=== PATIENT | female | born 1985 | race Caucasian/White ===

== ENCOUNTER 2017-12-06 12:16 | Inpatient (IN) | payer MEDICAID, SELFPAY ==
[2017-12-06 12:32] VITALS: BMI 22.1
--- NOTE | 2017-12-06 12:33 | PCM.HP.STD ---
Problem List (1) Heroin overdose Status: Acute (2) Recurrent UTI Status: Inactive (3) Anxiety Status: Acute History of Present Illness Date of Admission: 12/06/17 Chief Complaint: Nausea, abdominal cramps,gooseflesh The patient is a 32 year old F with past history of heroin use disorder who is coming in with complaints of feeling hot and cold with nausea and muscle aches. Patient reports using 1/2 to 1 g of Heroin IV daily. Last use of heroin was 12/05/2017 in amounts more than 1/16th of a gram. Patient's admitting CINA was 15. He reports past history of hospitalization 2017 for opioid withdrawal with no complication. She had 5 months of sobriety and then relapsed again. She is looking forward to his family life counseling and intensive outpatient counseling postdischarge. Past Medical History Surgical History: - - uterine surgery/implants Psychiatric History: Anxiety, Depression [employer] History: - - uterine surgery Lives: With Family Smoking Status: Light Smoker (<10/day) - *Family History Maternal History Items: No pertinent history Paternal History Items: No pertinent history Review of Systems Constitutional: Reports: Chills, Weakness. Denies: Anorexia, Fever, Weight Change Eyes: Denies: Blurred vision, Cataracts, Conjunctivae Inflammation, Pain, Redness HEENT: Reports: Nasal Congestion, - - lacrimation. Denies: Difficulty Hearing, Difficulty Swallowing, Head Aches, Hearing Changes, Sinus Drainage, Sore Throat, Visual Changes Cardiovascular: Denies: Chest Pain, Claudication, Chest Pressure, Orthopnea, Palpitations, Paroxysmal Noc. Dyspnea Respiratory: Denies: Cough, Hemoptysis, Pleuritic Pain, Shortness of breath upon exertion, Sputum production Gastrointestinal: Reports: Abdominal Pain, Nausea. Denies: Constipation, Diarrhea, Dyspepsia, Hematemesis, Hematochezia, Vomiting Genitourinary: Denies: Dysuria, Frequency Gynecological: Denies: Breast symptoms, Excessively long or heavy periods Musculoskeletal: Reports: - - muscle aches. Denies: Joint stiffness, Joint swelling Skin: Denies: Rash Neurological: Reports: - - restlessness. Denies: Balance problems, Blurred vision, Double vision, Difficulty swallowing, Focal weakness Psychiatric: Reports: Anxiety. Denies: Depression, Homicidal Ideations, Suicidal Ideations Endocrine: Denies: Change in Body Habitus Hematologic/ Lymphatic: Denies: Adenopathy VTE Information - Inpt Only VTE Present on Admission: No VTE Pharm Prophylaxis ordered?: No Reason prophylaxis not ordered:: Treatment Not Indicated Patient Problems: Active and Suspected Problems Heroin overdose (Acute) Anxiety (Acute) - Physical Exam General: Alert, Oriented x3, Cooperative HEENT: Atraumatic, PERRLA, EOMI, Normocephalic Oral: Moist Mucosa Neck: Supple, No JVD, Negative Carotid Bruits Lungs: Clear to auscultation, Normal air movement Cardiovascular: Regular rate, Regular Rhythm, Normal S1, Normal S2, No murmurs Abdomen: Bowel Sounds Present, Soft, Non Tender, Non-Distended, No Hepato-splenomegaly Extremities: No edema, Capillary Refill Less than 3 Seconds Skin: No rashes Musculoskeletal: No Tenderness to Palpation of Joints or Extremities Lymphatic: No Cervical, Supraclavicular, or Inguinal Adenopathy Neurological: Cranial nerves II-XII grossly intact, Neuro grossly intact, Motor Exam 5/5 strength throughout Psych/Mental Status: Normal Affect, Appropriate Assessment/Plan Active and Suspected Problems Heroin overdose (Acute) Anxiety (Acute) 32-year-old female with past history of heroin use disorder comes in with complaints of nausea, nasal congestion, restlessness, tremors, lacrimation, abdominal discomfort for medical stabilization via the [facility] protocol. 1. Acute heroine withdrawal, admitting CINA is 15, would managed per [facility] protocol with buprenorphine, will monitor vitals closely 2. Nicotine use disorder, will put patient on patch and gum 3. Anxiety/depression, patient is not on any chronic medications, not homicidal or suicidal, will continue to monitor 4. DVT prophylaxis with early ambulation Code Visit Inpatient E&M: 43193 Init Hosp L2
[2017-12-06 12:37] VITALS: BP 110/69; PULSE 97; RESP 16; TEMP 37.1; O2SAT 100
[2017-12-06 12:45] VITALS: BMI 22.2
[2017-12-06] MEDS: Buprenorphine HCl 2 MG TAB.SUBL SL ×2 (13:10→21:24)
[2017-12-06] MEDS: cloNIDine HCl 0.1 MG Tablet PO ×3 (13:10→19:23)
[2017-12-06] MEDS: QUEtiapine 25 MG Tablet PO ×2 (13:10→21:26)
[2017-12-06] MEDS: Dicyclomine 10 MG Capsule 20 MG PO (13:10)
[2017-12-06] MEDS: Methocarbamol 750 MG Tablet PO (13:10)
[2017-12-06 13:15] LABS: Absolute Lymphocyte Count 0.78 X10^3/ul (0.83-4.51); Absolute Neutrophil Count 4.9 X10^3/uL (2.0-7.7); Basophil# 0.01 X10^3/uL; Basophil% 0.2 % (0-1); Eosinophil# 0.03 X10^3/uL; Eosinophils% 0.5 % (0-5); Hematocrit 35.6 % (37-47); Hemoglobin 11.7 g/dl (12.0-15.0); Lymphocyte # 0.78 X10^3/ul (4.0); Lymphocyte % 12.9 % (19-41); Mean Corp Hgb Conc 32.9 g/gl (32-36); Mean Corpuscular Hgb 29.5 pg (27.0-32.0); Mean Corpuscular Volume 89.7 fL (81-99); Mean Platelet Vol. 9.1 fl (6.2-12.0); Monocyte# 0.35 X10^3/uL; Monocyte% 5.8 % (0-10); Neutrophil # 4.88 X10^3/uL (2.7-7.7); Neutrophil % 80.6 % (47-70); POSITIVE COUNT NO; POSITIVE DIFFERENTIAL NO; POSITIVE MORPHOLOGY NO; Platelet Count 238 K/mm3 (150-450); RBC Distribution Width SD 48.7 fl (35.1-43.9); Red Blood Count 3.97 M/mm3 (4.2-5.4); White Blood Count 6.1 K/mm3 (4.4-11.0)
[2017-12-06 13:29] LABS: ALB/GLOB Ratio 0.8 RATIO (0.9-2.4); AST(SGOT) 30 U/L (15-37); Alanine Aminotransfer ALT/SGPT 38 U/L (13-56); Albumin, Serum 3.9 g/dL (3.2-5.0); Alkaline Phosphatase 92 U/L (45-117); Anion Gap 7 (5-15); BUN 12 mg/dL (7-18); BUN/Creat Ratio 16.8 RATIO (10-20); Calcium,Total 9.3 mg/dL (8.5-10.1); Chloride 103 mmol/L (98-107); Creatinine, Serum 0.71 mg/dL (0.55-1.02); EST Glomerular Filtration Rate 100 mL/min (>60); Est Glom Filt Rate - Afr Amer 120 mL/min (>60); Estimated Creatinine Clearance 112.63 ml/min; Glucose 104 mg/dL (74-106); Potassium 4.1 mmol/L (3.5-5.1); Protein, Total 8.9 g/dL (6.4-8.2); Sodium Level 137 mmol/L (136-145)
[2017-12-06 17:19] VITALS: BP 104/60; PULSE 90; RESP 16; TEMP 37.2
[2017-12-06] MEDS: Pramipexole Di-HCl 0.25 MG Tablet PO (17:22)
[2017-12-06 19:46] VITALS: BP 95/54; PULSE 84; RESP 18; TEMP 36.6
[2017-12-06] MEDS: hydrOXYzine PAM 25 MG Capsule 50 MG PO (21:26)
[2017-12-06 23:30] VITALS: BP 91/48; PULSE 74; RESP 16; TEMP 36.9; O2SAT 98
[2017-12-07 04:23] VITALS: BP 75/43; PULSE 77; RESP 18; TEMP 36.5
[2017-12-07 05:15] VITALS: BP 93/49; PULSE 78; RESP 17; TEMP 36.5; O2SAT 100
[2017-12-07] MEDS: Buprenorphine HCl 2 MG TAB.SUBL SL ×3 (05:17→22:32)
--- NOTE | 2017-12-07 07:55 | PN_ITS ---
Patient Problems: Active and Suspected Problems Heroin overdose (Acute) Anxiety (Acute) Subjective: Patient was seen and examined. No complaints, has mild chills with cramps. Overall feels stable. Denied any fever or dizziness or chest pain. Acute events overnight. Objective: Physical Exam General: Alert, Oriented x3, Cooperative, sweaty HEENT: Atraumatic, PERRLA, EOMI, Normocephalic Oral: Moist Mucosa Neck: Supple, No JVD, Negative Carotid Bruits Lungs: Clear to auscultation, Normal air movement Cardiovascular: Regular rate, Regular Rhythm, Normal S1, Normal S2, No murmurs Abdomen: Bowel Sounds Present, Soft, Non Tender, Non-Distended, No Hepato- splenomegaly Extremities: No edema, Capillary Refill Less than 3 Seconds Skin: No rashes Musculoskeletal: No Tenderness to Palpation of Joints or Extremities Lymphatic: No Cervical, Supraclavicular, or Inguinal Adenopathy Neurological: Cranial nerves II-XII grossly intact, Neuro grossly intact, Motor Exam 5/5 strength throughout Psych/Mental Status: Normal Affect, Appropriate Vitals/I&O's: Vital Signs Temp Pulse Resp BP Pulse Ox 97.7 F L 78 17 93/49 L 100 12/07/17 05:15 12/07/17 05:15 12/07/17 05:15 12/07/17 05:15 12/07/17 05:15 Oxygen Delivery Method Room Air Weight: 66.1 kg Body Mass Index (BMI) 22.1 Intake and Output for Last 24 Hours 12/05/17 12/06/17 12/07/17 23:59 23:59 23:59 Intake Total 1040 / 1040 640 / 640 Balance 1040 / 1040 640 / 640 Laboratory Results 12/06/17 12:45: WBC 6.1, RBC 3.97 L, Hgb 11.7 L, Hct 35.6 L, MCV 89.7, MCH 29.5 , MCHC 32.9, RDW 15.0 H, RDW Differential 48.7 H, Plt Count 238, MPV 9.1, Immature Gran % (Auto) 0.000, Neut % (Auto) 80.6 H, Lymph % (Auto) 12.9 L, [place] % (Auto) 5.8, Eos % (Auto) 0.5, Baso % (Auto) 0.2, Absolute Neuts (auto) 4.9, Absolute Lymphs (auto) 0.78 L, Total Counted Not Reportable 12/06/17 12:45: Sodium 137, Potassium 4.1, Chloride 103, Carbon Dioxide 27.0, Anion Gap 7, BUN 12, Creatinine 0.71, Estim Creat Clear Calc 112.63, Est GFR ( MDRD) Af Amer 120, Est GFR (MDRD) Non-Af 100, BUN/Creatinine Ratio 16.8, Glucose 104, Calcium 9.3, Total Bilirubin 1.00, AST 30, ALT 38, Alkaline Phosphatase 92, Total Protein 8.9 H, Albumin 3.9, Globulin 5.0 H, Albumin/ Globulin Ratio 0.8 L Current Medications Acetaminophen (Tylenol) 650 mg PO Q6H PRN PRN PRN Reason: HEADACHE Bisacodyl (Dulcolax) 5 mg PO DAILY PRN PRN PRN Reason: Constipation Buprenorphine HCl (Buprenorphine Hcl) 4 mg SL Q8H [facility] PRN Reason: Taper Stop: 12/09/17 17:59 Last Admin: 12/07/17 05:17 Dose: 4 mg Clonidine (Catapres) 0.1 mg PO Q2H PRN PRN PRN Reason: Hot/Cold Sweats or Anxiety Last Admin: 12/06/17 19:23 Dose: 0.1 mg Dicyclomine HCl (Bentyl) 20 mg PO Q6H PRN PRN PRN Reason: Abdomnial Discomfort Last Admin: 12/06/17 13:10 Dose: 20 mg Hydroxyzine HCl (Vistaril Vial) 50 mg IM Q6H PRN PRN PRN Reason: Breakthrough Anxiety Hydroxyzine Pamoate (Vistaril Pamoate Capsule) 50 mg PO Q6H PRN PRN PRN Reason: Mild Anxiety (score 1/3) Last Admin: 12/06/17 21:26 Dose: 50 mg Magnesium Hydroxide (Milk Of Magnesia) 30 ml PO DAILY PRN PRN PRN Reason: Constipation Methocarbamol (Methocarbamol) 750 mg PO Q6H PRN PRN PRN Reason: Muscle Aches Last Admin: 12/06/17 13:10 Dose: 750 mg Nicotine (Nicoderm Cq (Pbkc)) 14 mg TRANSDERM. DAILY [facility] Pramipexole Dihydrochloride (Mirapex) 0.25 mg PO Q12H PRN PRN PRN Reason: Restless Legs Last Admin: 12/06/17 17:22 Dose: 0.25 mg Psyllium Hydrophilic Mucilloid (Metamucil) 1 packet PO DAILY PRN PRN PRN Reason: CONSTIPATION Quetiapine Fumarate (Seroquel) 25 mg PO Q6H PRN PRN PRN Reason: Moderate Anxiety (score 2/3) Last Admin: 12/06/17 21:26 Dose: 25 mg Sodium Chloride () 5 - 30 ml IV UD PRN PRN Reason: SALINE FLUSH Medical Necessity - Tobacco Use Smoking Status: Light Smoker (<10/day) Assessment/Plan Active and Suspected Problems Heroin overdose (Acute) Anxiety (Acute) 32-year-old female with past history of heroin use disorder comes in with complaints of nausea, nasal congestion, restlessness, tremors, lacrimation, abdominal discomfort for medical stabilization via the [facility] protocol. 1. Acute heroine withdrawal, being managed per [facility] protocol with buprenorphine, continue to monitor vitals closely. 2. Nicotine use disorder, on nicotine patch and gum. 3. Anxiety/depression, stable 4. DVT prophylaxis with early ambulation Code Visit Inpatient E&M: 43366 Subs Hosp L2
[2017-12-07 09:30] VITALS: BP 80/41; PULSE 76; RESP 16; TEMP 36.8; O2SAT 99
[2017-12-07] MEDS: hydrOXYzine PAM 25 MG Capsule 50 MG PO (09:30)
--- NOTE | 2017-12-07 13:07 | CHAPLAIN ---
Type of Pastoral Visit _x__ Initial Visit ___ Follow-up Visit ___ On-call Visit ___ General Patient Visit ___ Spiritual Assessment ___ Family Conference ___ Bereavement ___ Rapid Response ___ Code Blue ___ Other (describe below) Pastoral Care Referral From _x_ Patient ___ Family ___ Nurse ___ Physician ___ It Security Specialist ___ Centrifugal Drier Operator ___ Other (describe below) Sacrament/Intervention ___ Active listening ___ Anointing ___ Yazidi ___ Bereavement ___ Communion ___ Anita exploration ___ ___ Life review ___ Prayer ___ Reconciliation ___ Sacrament of Sick _x__ Supportive presence ___ Wedding ___ Other (describe below) Pastoral Comments introduction to patient; pt said she would meet with this manager interface tomorrow but would like to take a nap at this time
[2017-12-07 14:00] VITALS: BP 100/60; PULSE 86; RESP 16; TEMP 37.3
[2017-12-07] MEDS: cloNIDine HCl 0.1 MG Tablet PO ×2 (14:01→22:32)
[2017-12-07 17:47] VITALS: BP 85/43; PULSE 68; RESP 16; TEMP 36.8
[2017-12-07 22:00] VITALS: BP 104/56; PULSE 83; RESP 16; TEMP 36.9
[2017-12-07] MEDS: QUEtiapine 25 MG Tablet PO (22:32)
[2017-12-08 06:00] VITALS: BP 88/52; PULSE 72; RESP 16; TEMP 36.8
[2017-12-08] MEDS: Methocarbamol 750 MG Tablet PO (06:17)
[2017-12-08] MEDS: hydrOXYzine PAM 25 MG Capsule 50 MG PO ×2 (06:17→14:55)
[2017-12-08] MEDS: Buprenorphine HCl 2 MG TAB.SUBL SL ×2 (06:17→17:45)
--- NOTE | 2017-12-08 08:54 | PN_ITS ---
Patient Problems: Active and Suspected Problems Heroin overdose (Acute) Anxiety (Acute) Subjective: Patient was seen and examined. Feels less clammy, dizzy or having cramps. Blood pressures have been low and have not been able to get a Catapres. Denies any dizziness or chest pain or palpitations or shortness of breath. Objective: Physical Exam General: Alert, Oriented x3, Cooperative, not pale, not jaundiced HEENT: Atraumatic, PERRLA, EOMI, Normocephalic Oral: Moist Mucosa Neck: Supple, No JVD, Negative Carotid Bruits Lungs: Clear to auscultation, Normal air movement Cardiovascular: Regular rate, Regular Rhythm, Normal S1, Normal S2, No murmurs Abdomen: Bowel Sounds Present, Soft, Non Tender, Non-Distended, No Hepato- splenomegaly Extremities: No edema, Capillary Refill Less than 3 Seconds Skin: No rashes Musculoskeletal: No Tenderness to Palpation of Joints or Extremities Lymphatic: No Cervical, Supraclavicular, or Inguinal Adenopathy Neurological: Cranial nerves II-XII grossly intact, Neuro grossly intact, Motor Exam 5/5 strength throughout Psych/Mental Status: Normal Affect, Appropriate Vitals/I&O's: Vital Signs Temp Pulse Resp BP Pulse Ox 98.3 F 72 16 88/52 L 99 12/08/17 06:00 12/08/17 06:00 12/08/17 06:00 12/08/17 06:00 12/07/17 09:30 Oxygen Delivery Method Room Air Weight: 66.1 kg Body Mass Index (BMI) 22.1 Intake and Output for Last 24 Hours 12/06/17 12/07/17 12/08/17 23:59 23:59 23:59 Intake Total 1040 / 1040 1590 / 1590 1184 / 1184 Balance 1040 / 1040 1590 / 1590 1184 / 1184 Current Medications Acetaminophen (Tylenol) 650 mg PO Q6H PRN PRN PRN Reason: HEADACHE Bisacodyl (Dulcolax) 5 mg PO DAILY PRN PRN PRN Reason: Constipation Buprenorphine HCl (Buprenorphine Hcl) 2 mg SL Q12H [facility] PRN Reason: Taper Stop: 12/09/17 17:59 Last Admin: 12/08/17 06:17 Dose: 2 mg Clonidine (Catapres) 0.1 mg PO Q2H PRN PRN PRN Reason: Hot/Cold Sweats or Anxiety Last Admin: 12/07/17 22:32 Dose: 0.1 mg Dicyclomine HCl (Bentyl) 20 mg PO Q6H PRN PRN PRN Reason: Abdomnial Discomfort Last Admin: 12/06/17 13:10 Dose: 20 mg Hydroxyzine HCl (Vistaril Vial) 50 mg IM Q6H PRN PRN PRN Reason: Breakthrough Anxiety Hydroxyzine Pamoate (Vistaril Pamoate Capsule) 50 mg PO Q6H PRN PRN PRN Reason: Mild Anxiety (score 1/3) Last Admin: 12/08/17 06:17 Dose: 50 mg Magnesium Hydroxide (Milk Of Magnesia) 30 ml PO DAILY PRN PRN PRN Reason: Constipation Methocarbamol (Methocarbamol) 750 mg PO Q6H PRN PRN PRN Reason: Muscle Aches Last Admin: 12/08/17 06:17 Dose: 750 mg Nicotine (Nicoderm Cq (Pbkc)) 14 mg TRANSDERM. DAILY [facility] Last Admin: 12/07/17 09:23 Dose: Not Given Pramipexole Dihydrochloride (Mirapex) 0.25 mg PO Q12H PRN PRN PRN Reason: Restless Legs Last Admin: 12/06/17 17:22 Dose: 0.25 mg Psyllium Hydrophilic Mucilloid (Metamucil) 1 packet PO DAILY PRN PRN PRN Reason: CONSTIPATION Quetiapine Fumarate (Seroquel) 25 mg PO Q6H PRN PRN PRN Reason: Moderate Anxiety (score 2/3) Last Admin: 12/07/17 22:32 Dose: 25 mg Sodium Chloride () 5 - 30 ml IV UD PRN PRN Reason: SALINE FLUSH Medical Necessity - Tobacco Use Smoking Status: Light Smoker (<10/day) Tobacco Use: Cigarettes Assessment/Plan Active and Suspected Problems Heroin overdose (Acute) Anxiety (Acute) 32-year-old female with past history of heroin use disorder comes in with complaints of nausea, nasal congestion, restlessness, tremors, lacrimation, abdominal discomfort for medical stabilization via the [facility] protocol. 1. Acute heroine withdrawal, being managed per [facility] protocol with buprenorphine, she will possibly be discharged tomorrow. 2. Nicotine use disorder, on nicotine patch and gum. 3. Anxiety/depression, stable 4. DVT prophylaxis with early ambulation
[2017-12-08 09:07] VITALS: BP 78/38; PULSE 89; RESP 16; TEMP 36.8; O2SAT 99
[2017-12-08 09:09] VITALS: BP 96/55
[2017-12-08] MEDS: QUEtiapine 25 MG Tablet PO ×2 (09:16→20:47)
[2017-12-08] MEDS: Pramipexole Di-HCl 0.25 MG Tablet PO ×2 (09:16→20:47)
[2017-12-08 14:49] VITALS: BP 92/58; PULSE 90; RESP 18; TEMP 37.1; O2SAT 98
[2017-12-08 17:44] VITALS: BP 118/67; PULSE 98
[2017-12-08] MEDS: cloNIDine HCl 0.1 MG Tablet PO (17:45)
[2017-12-08 20:52] VITALS: BP 99/50; PULSE 86; RESP 20; TEMP 37
[2017-12-09] MEDS: Buprenorphine HCl 2 MG TAB.SUBL SL (05:57)
[2017-12-09 06:02] VITALS: BP 99/56; PULSE 81; RESP 18; TEMP 36.3
--- NOTE | 2017-12-09 07:44 | PCM.DC ---
- Discharge Diagnoses Current Active Problems: Current Active and Chronic Problems Heroin overdose (Acute) Anxiety (Acute) Reason(s) for Visit for Discharge Instructions: Heroin withdrawal You will use the following diet at home:: Regular Your food should be the consistency of: Regular Your liquids should be the consistency of: Regular/Thin Discharge Activity: Return to Normal Activity Allergies/Adverse Reactions: Allergies meperidine [From Demerol] Allergy (Verified 12/06/17 12:43) Hives ampicillin Adverse Reaction (Verified 12/06/17 12:39) Other ondansetron [From Zofran (as hydrochloride)] Adverse Reaction (Verified 12/06/17 12:39) Other gives pt migraines Primary Care Physician: Care Physician,No Primary [Primary Care Provider] - Please follow up with your Primary Care Physician in: within 2 weeks Proposed Discharge Date: 12/09/17
[2017-12-09 07:59] VITALS: BP 85/53; PULSE 74; RESP 16; TEMP 36.9; O2SAT 99
[2017-12-09] MEDS: QUEtiapine 25 MG Tablet PO (08:05)
[2017-12-09] MEDS: Methocarbamol 750 MG Tablet PO (08:05)
[2017-12-09 08:08] VITALS: BP 85/53; PULSE 74; RESP 16; TEMP 36.9
[2017-12-09] MEDS: Pramipexole Di-HCl 0.25 MG Tablet PO (08:59)
--- NOTE | 2017-12-09 09:42 | PCM.DC.SUM ---
Discharge Date and Diagnosis - Problem List Patient Problems: Active and Suspected Problems Heroin overdose (Acute) Anxiety (Acute) Date of Admission: 12/06/17 Date of Discharge: 12/09/17 - Primary Discharge Diagnosis Active and Suspected Problems Heroin overdose (Acute) Anxiety (Acute) - Secondary Discharge Diagnosis Heroin use disorder Hospital Course and Treatment None Operations: None Procedures: None Summary of Care Provided: 32-year-old female with past history of heroin use disorder comes in with complaints of nausea, nasal congestion, restlessness, tremors, lacrimation, abdominal discomfort for medical stabilization via the [facility] protocol. 1. Acute heroine withdrawal, managed per [facility] protocol with buprenorphine with improvement. 2. Nicotine use disorder, on nicotine patch and gum. 3. Anxiety/depression, stable Discharge Diet: No Restrictions Discharge Activity: Return to Normal Activity Primary Care Physician: Care Physician,No Primary [Primary Care Provider] - Please follow up with your Primary Care Physician in: within 2 weeks Disposition: Home Minutes spent on discharge:: 25 Patient Condition:: Stable Medical Necessity - Tobacco Use Smoking Status: Light Smoker (<10/day) Tobacco Use: Cigarettes Meaningful Use Info Meaningful Use Diagnoses (Choose all that apply): None applicable Code Visit Inpatient E&M: 33403 Disch Hosp
== END 2017-12-09 10:45 | disposition home or self-care (01) | DRG 435 ==
PROVIDERS: Admitting Provider Internal Medicine; Visit Provider Internal Medicine
DX: F11.23 Opioid dependence with withdrawal (principal); F17.210 Nicotine dependence, cigarettes, uncomplicated; F41.9 Anxiety disorder, unspecified
CPT/HCPCS: 80053; 85025; 97802